=== PATIENT | male | born 1980 | race Caucasian/White ===

== ENCOUNTER 2019-09-01 03:44 | Emergency (ER) | payer OTHER ==
[2019-09-01] MEDS ORDERED: Doxycycline 100 MG Cap PO ONE (04:04)
--- NOTE | 2019-09-01 04:05 | EDM.PDOC ---
ED HPI GENERAL MEDICAL PROBLEM - General Chief Complaint: Genitourinary Problem Stated Complaint: LEFT TESTICAL ENLARGED Time Seen by Provider: 09/01/19 03:58 Source of Information: Reports: Patient, RN Notes Reviewed - History of Present Illness INITIAL COMMENTS - FREE TEXT/NARRATIVE: Patient states he tried to squeeze and than poke a couple of small inflamed cysts R scrotum. Becoming more swollen and painful this AM. No drainage. No fever chills. Groin Pain Score (Numeric/FACES): 4 - Related Data Allergies Allergy/AdvReac Type Severity Reaction Status Date / Time No Known Allergies Allergy Verified 09/01/19 03:51 Home Meds: Home Meds Doxycycline [Vibramycin] 100 mg PO BID #20 tab 09/01/19 [Rx] Ibuprofen [Advil] 800 mg PO ASDIRECTED 09/01/19 [History] Past Medical History - Past Health History Medical/Surgical History: Denies Medical/Surgical History Endocrine/Metabolic History: Reports: Diabetes, Type II Social & Family History - Tobacco Use Smoking Status *Q: Current Every Day Smoker Years of Tobacco use: 20 Packs/Tins Daily: 0.3 - Alcohol Use Days Per Week of Alcohol Use: 7 Number of Drinks Per Day: 2 Total Drinks Per Week: 14 - Recreational Drug Use Recreational Drug Use: No ED ROS GENERAL - Review of Systems Review Of Systems: See Below Constitutional: Denies: Fever, Chills HEENT: Reports: No Symptoms Respiratory: Denies: Shortness of Breath Cardiovascular: Denies: Chest Pain GI/Abdominal: Denies: Abdominal Pain, Nausea, Vomiting : Denies: Discharge ED EXAM, GENERAL - Physical Exam Exam: See Below General Appearance: Alert, Mild Distress Head: Atraumatic Neck: Supple Respiratory/Chest: No Respiratory Distress (Male) Exam: Other (area of mild swelling slightly scabbed over R scrotum, mild surrounding erythema and 2nd area mild swelling R inf. scrotum. L scrotum nontender, no testicular swelling or tenderness) Skin Exam: Other (skin otherwise clear) Course - Vital Signs Last Recorded V/S: Last Vital Signs Temp 97.6 F 09/01/19 03:50 Pulse 85 09/01/19 03:50 Resp 20 09/01/19 03:50 BP 158/95 H 09/01/19 03:50 Pulse Ox 99 09/01/19 03:50 - Orders/Labs/Meds Meds: Medications Discontinued Medications Generic Name Dose Route Start Last Admin Trade Name Randa PRN Reason Stop Dose Admin Doxycycline Hyclate 200 mg 09/01/19 04:04 Vibramycin PO 09/01/19 04:05 ONETIME ONE Departure - Departure Time of Disposition: 04:15 Disposition: Home, Self-Care 01 Condition: Fair Clinical Impression: Folliculitis - Discharge Information Prescriptions: Doxycycline [Vibramycin] 100 mg PO BID #20 tab Instructions: Folliculitis Referrals: PCP,None [Primary Care Provider] - Forms: ED Department Discharge, ED Return to Work/School Form Additional Instructions: Doxycycline 100 mg twice daily. You have been given an initial 100 mg dose here in the ED. Take your next dose sometime later this morning and then again at evening tonight so you will actually take a total of 3 doses today and then twice daily for the next 9 days or until gone. Follow-up clinic if this does not resolve over the next 3 to 5 days as expected, return to ED as needed. Sepsis Event Note - Evaluation Sepsis Screening Result: No Definite Risk - Focused Exam Vital Signs: Vital Signs Temp Pulse Resp BP Pulse Ox 09/01/19 03:50 97.6 F 85 20 158/95 H 99 Date Exam was Performed: 09/01/19 Time Exam was Performed: 04:16
== END 2019-09-01 04:25 | disposition home or self-care (01) ==
LOC: JD.ED 03:44
DX: L73.9 Follicular disorder, unspecified (principal); E11.9 Type 2 diabetes mellitus without complications; F17.210 Nicotine dependence, cigarettes, uncomplicated
CPT/HCPCS: 99283; A9270

== ENCOUNTER 2020-02-10 06:30 | Emergency (ER) | payer SELFPAY ==
[2020-02-10] MEDS ORDERED: Hydrocortisone 1% Crm 30 GM Tube TOP ONE (07:14)
--- NOTE | 2020-02-10 07:14 | EDM.PDOC ---
ED HPI GENERAL MEDICAL PROBLEM - General Chief Complaint: Skin Complaint Stated Complaint: SKIN COMPLAINT/REDNESS IN FACE/POSS ALLERGY Time Seen by Provider: 02/10/20 07:05 - History of Present Illness INITIAL COMMENTS - FREE TEXT/NARRATIVE: 39-year-old male presents to the emergency room with skin irritation. Last night around 10:00 he got exposed to a bug spray called [employer] [place]. Most of this exposure was to the back of the neck. He is developed getting a burning irritation to the skin here. Cording to the patient he tried to vigorously wash it off. At this time he is having a burning sensation to the skin. Patient d oes not have any breathing difficulties or shortness of breath no other complaints at this time however he does state that this is very uncomfortable and painful at times. Posterior Neck Pain Score (Numeric/FACES): 7 - Related Data Allergies Allergy/AdvReac Type Severity Reaction Status Date / Time No Known Allergies Allergy Verified 02/10/20 06:41 Home Meds: Home Meds . [No Known Home Meds] 02/10/20 [History] Past Medical History - Past Health History Medical/Surgical History: Denies Medical/Surgical History Endocrine/Metabolic History: Reports: Diabetes, Type II - Past Surgical History HEENT Surgical History: Reports: Tonsillectomy Social & Family History - Tobacco Use Smoking Status *Q: Current Every Day Smoker Years of Tobacco use: 25 Packs/Tins Daily: 0.2 - Recreational Drug Use Recreational Drug Use: No ED ROS GENERAL - Review of Systems Review Of Systems: See Below Constitutional: Reports: No Symptoms HEENT: Reports: No Symptoms Respiratory: Reports: No Symptoms Cardiovascular: Reports: No Symptoms GI/Abdominal: Reports: No Symptoms Skin: Reports: Other (See history of present illness) Neurological: Reports: No Symptoms ED EXAM, SKIN/RASH Exam: See Below Exam Limited By: No Limitations General Appearance: Alert, Mild Distress (From the skin irritation) Eye Exam: Bilateral Eye: Normal Inspection Ears: Normal External Exam, Normal Canal, Hearing Grossly Normal, Normal TMs Nose: Normal Inspection, Normal Mucosa, No Blood Throat/Mouth: Normal Inspection, Normal Lips, Normal Teeth, Normal Gums, Normal Oropharynx, Normal Voice, No Airway Compromise Head: Atraumatic, Normocephalic Neck: Supple, Other (Significant skin irritation posterior aspect of the neck above his T-shirt line to the base of the hairline erythematous slightly swollen no drainage or warmth). No: Lymphadenopathy (L), Lymphadenopathy (R) Respiratory/Chest: No Respiratory Distress, Lungs Clear, Normal Breath Sounds Cardiovascular: Regular Rate, Rhythm, No Edema, No Murmur Course - Vital Signs Last Recorded V/S: Last Vital Signs Temp 36.4 C 02/10/20 06:42 Pulse 100 02/10/20 06:42 Resp 17 02/10/20 06:42 BP 152/100 H 02/10/20 06:42 Pulse Ox 97 02/10/20 06:42 - Orders/Labs/Meds Meds: Medications Discontinued Medications Generic Name Dose Route Start Last Admin Trade Name Freq PRN Reason Stop Dose Admin Diphenhydramine HCl 25 mg 02/10/20 07:17 02/10/20 07:33 Benadryl IVPUSH 02/10/20 07:18 25 mg ONETIME ONE Administration Famotidine 40 mg 02/10/20 07:17 02/10/20 07:34 Pepcid IVPUSH 02/10/20 07:18 40 mg ONETIME ONE Administration Hydrocortisone 30 gm 02/10/20 07:14 02/10/20 07:27 Hydrocortisone 1% Crm TOP 02/10/20 07:15 1 dose ASDIRECTED ONE Administration - Re-Assessments/Exams Free Text/Narrative Re-Assessment/Exam: 02/10/20 07:33 Case was discussed with poison control who recommends topical hydrocortisone. With his reaction we will also given some IV Benadryl and famotidine. 02/10/20 09:27 Is doing much better we will discharge Departure - Departure Time of Disposition: 09:27 Disposition: Home, Self-Care 01 Clinical Impression: Skin irritation - Discharge Information Referrals: PCP,None [Primary Care Provider] - Forms: ED Department Discharge Additional Instructions: Return to the emergency room with any questions problems or worsening symptoms. Use the hydrocortisone cream 4 times a day until better recheck in 4 days if not resolved. technical support 1 software engineer some [id number] Pepcid, or famotidine, it is marketed as an acid material control associate. Take 1 daily starting tomorrow for 7 days. Use Benadryl 25 mg every 6 hours only if needed for itching and irritation. Sepsis Event Note (ED) - Evaluation Sepsis Screening Result: No Definite Risk - Focused Exam Vital Signs: Vital Signs Temp Pulse Resp BP Pulse Ox 02/10/20 06:42 36.4 C 100 17 152/100 H 97
[2020-02-10] MEDS ORDERED: diphenhydrAMINE 50 MG/ML SDV IVPUSH ONE (07:17)
[2020-02-10] MEDS ORDERED: Famotidine 20 MG/2 ML SDV IVPUSH ONE (07:17)
== END 2020-02-10 09:40 | disposition home or self-care (01) ==
LOC: JD.ED 06:30
DX: L98.8 Other specified disorders of the skin and subcutaneous tissue (principal); F17.200 Nicotine dependence, unspecified, uncomplicated; E11.9 Type 2 diabetes mellitus without complications
CPT/HCPCS: 96374; 96375; 99283; A9270; J1200; J3490; 99282